=== PATIENT | male | born 1950 | race Caucasian/White ===

== ENCOUNTER 2023-01-02 07:06 | Day surgery (SDC) | payer MEDICARE ==
[2023-01-02] VITALS (16 sets, daily range): BP systolic 110–173; BP diastolic 59–97
[~2023-01-02] VITALS: Ht 172.7 cm; Wt 76.0 kg
[~2023-01-02 07:06] MED LIST: ALBU90OI INH; AMOCLA875 PO; ATOR20 PO; DIAZ5 PO; HYDMOR2 PO; METCAR500 PO; METF500 PO; OXYACE5T PO; RXOXYACE PO; TRAM50 PO
== END 2023-01-02 12:01 | disposition home or self-care (01) ==
LOC: ORSCMMR 07:06 → ORD 09:00 → ORSCMMR 12:01
PROVIDERS: Surgery
PROC: BF031ZZ Plain Radiography of Gallbladder and Bile Ducts using Low Osmolar Contrast (ICD-10-PCS; principal; 2023-01-02 09:00)
PROC: 0FT44ZZ Resection of Gallbladder, Percutaneous Endoscopic Approach (ICD-10-PCS; principal; 2023-01-02 09:00)
DX: K80.10 Calculus of gallbladder with chronic cholecystitis without obstruction (principal); E11.9 Type 2 diabetes mellitus without complications; J44.9 Chronic obstructive pulmonary disease, unspecified; Z79.899 Other long term (current) drug therapy; Z79.84 Long term (current) use of oral hypoglycemic drugs
CPT/HCPCS: 74300; 82947; 88304; A9270; C1729; J0690; J1100; J1170; J2405; J2704; J2795; J3010; J7120

== ENCOUNTER 2025-03-30 09:16 | Day surgery (SDC) | payer MEDICARE ==
[~2025-03-30] VITALS: Ht 175.3 cm; Wt 65.3 kg
[2025-03-30] MEDS ORDERED: Benzocaine Oral Spray 0.5ML UD ONE (09:27)
[2025-03-30] MEDS ORDERED: ATOR10 (09:33)
[2025-03-30] MEDS ORDERED: DIAZEPAM2 MG (09:34)
[2025-03-30] MEDS ORDERED: DONEPEZIL HCL10 MG (09:34)
[2025-03-30] MEDS ORDERED: ESCITALOPRAM OXA5 MG (09:35)
[2025-03-30] MEDS ORDERED: Citric Acid/Sodium Citrate 30 ML BTL ONE (09:51)
[2025-03-30] MEDS ORDERED: Metoclopramide HCl 5MG / ML 2ML Vial ONE (09:51)
[2025-03-30 12:10] VITALS: BP 134/71
[2025-03-30] MEDS ORDERED: Glycopyrrolate 0.2 MG/ML 1MLVIAL ONE (12:52)
== END 2025-03-30 11:40 | disposition home or self-care (01) ==
LOC: ORSCSDS 09:16
DX: K62.5 Hemorrhage of anus and rectum (principal); R63.4 Abnormal weight loss; R93.3 Abnormal findings on diagnostic imaging of other parts of digestive tract; K64.8 Other hemorrhoids; K57.30 Diverticulosis of large intestine without perforation or abscess without bleeding; F41.9 Anxiety disorder, unspecified; E78.5 Hyperlipidemia, unspecified; F03.90 Unspecified dementia, unspecified severity, without behavioral disturbance, psychotic disturbance, mood disturbance, and anxiety; J44.9 Chronic obstructive pulmonary disease, unspecified; I10 Essential (primary) hypertension; E11.9 Type 2 diabetes mellitus without complications; Z87.891 Personal history of nicotine dependence; Z79.899 Other long term (current) drug therapy
CPT/HCPCS: 82947; 88305; 88342; A9270; J2704; J2765; J7120